=== PATIENT | male | born 1955 | race Caucasian/White ===

== ENCOUNTER 2016-12-24 07:54 | Day surgery (SDC) | payer OTHER ==
[2016-12-24] MEDS ORDERED: Midazolam 1 MG/ML 2 ML SDV ONE (08:05)
[2016-12-24] MEDS ORDERED: fentaNYL 100 MCG/2 ML SDV ONE (08:05)
[2016-12-24] MEDS ORDERED: Propofol 200 MG/20 ML SDV ONE (08:05)
[2016-12-24] MEDS ORDERED: Dextrose 5%-Lactated Ringers 1,000 ML IV SCH ×2 (08:30→10:45)
[2016-12-24 11:38] VITALS: BP 96/59
--- NOTE | 2016-12-28 12:09 | OR ---
DATE OF PROCEDURE: 12/24/2016 PREOPERATIVE DIAGNOSIS: Indications for screening colonoscopy. POSTOPERATIVE DIAGNOSIS: Uncomplicated left colonic diverticulosis. OPERATIVE PROCEDURE: Flexible colonoscopy. ANESTHESIA: IV sedation. INDICATIONS FOR PROCEDURE: This is a 61-year-old male presenting with indications for screening colonoscopy. He has no personal or family history of colon neoplasia. Plan is to proceed with a colonoscopy with biopsies and/or polypectomy as indicated. Potential risks including bleeding and perforation were discussed, and the patient wishes to proceed. DETAILS OF PROCEDURE: The patient was taken to the operating room and placed in a left lateral decubitus position. IV sedation was administered after which the initial digital rectal exam was performed and was unremarkable. Colonoscope was then passed to the level of the rectum where retroflexion revealed uncomplicated hemorrhoidal columns. The scope was then eventually passed to the level of the cecum. Prep was fairly good, though there was some liquid solid stool obscuring small portions of the surfaces, though the vast majority of the surfaces were satisfactory identified. The patient had some uncomplicated left colonic diverticulosis, otherwise there are no areas of inflammation or colitis and no polyps or other signs of neoplasia. The scope was then withdrawn, the above findings reconfirmed, and the procedure concluded. The patient was taken to the recovery room in satisfactory condition. Recommendation would be to repeat the colonoscopy in 10 years unless there are signs or symptoms indicating the need for earlier exam. César Lanza MD /[id number]
== END 2016-12-24 11:49 | disposition home or self-care (01) ==
LOC: JP.SDS 07:54
PROVIDERS: ATTEND Surgery
DX: Z12.11 Encounter for screening for malignant neoplasm of colon (principal); K57.30 Diverticulosis of large intestine without perforation or abscess without bleeding; Z80.0 Family history of malignant neoplasm of digestive organs
CPT/HCPCS: 45378; J2250; J2704; J3010; J7042

== ENCOUNTER 2020-11-22 19:26 | Emergency (ER) | payer OTHER, MEDICARE ==
--- NOTE | 2020-11-22 20:04 | EDM.PDOC ---
ED HPI GENERAL MEDICAL PROBLEM - General Chief Complaint: Fever Stated Complaint: FEVER, FATIGUE Time Seen by Provider: 11/22/20 19:40 Source of Information: Reports: Patient, Family History Limitations: Reports: No Limitations - History of Present Illness INITIAL COMMENTS - FREE TEXT/NARRATIVE: This is a 65 year old male presenting with fever. He is POD#2 from a left total hip arthroplasty. He reports that he noticed a fever of 101 about 2 hours prior to arrival. He took a dose of tylenol prior to coming in and is afebrile here. He denies any other associated symptoms. He denies cough, SOB, chest pain, abdominal pain, nausea, vomiting, diarrhea, or urinary symptoms. Him and his note that there is some mild swelling at the site of his incision, but they have not noticed any redness or drainage. He denies leg swelling or leg pain aside from usual pain at the incision site. He is on a full dose aspirin twice daily for anticoagulation. Treatments FISHER POT: Reports: Acetaminophen - Related Data Allergies Allergy/AdvReac Type Severity Reaction Status Date / Time No Known Allergies Allergy Verified 12/24/16 08:10 Home Meds: Home Meds Aspirin 325 mg PO DAILY 11/22/20 [History] Hydrocodone/Acetaminophen [HYDROcodone-Acetaminophen 5-325 MG] 2 tab PO ASDIRECTED 11/22/20 [History] Ketorolac [Toradol] 10 mg PO Q6H PRN 11/22/20 [History] Omeprazole 20 mg PO DAILY 11/22/20 [History] Past Medical History HEENT History: Reports: Impaired Vision Cardiovascular History: Reports: None Respiratory History: Reports: None Gastrointestinal History: Reports: Colon Polyp Genitourinary History: Reports: None Musculoskeletal History: Reports: Arthritis, Osteoarthritis Neurological History: Reports: None Psychiatric History: Reports: None Endocrine/Metabolic History: Reports: None Hematologic History: Reports: None Immunologic History: Reports: None Oncologic (Cancer) History: Reports: None Dermatologic History: Reports: None - Infectious Disease History Infectious Disease History: Reports: Chicken Pox, Measles, Mumps - Past Surgical History Head Surgeries/Procedures: Reports: None HEENT Surgical History: Reports: None Cardiovascular Surgical History: Reports: None Respiratory Surgical History: Reports: None GI Surgical History: Reports: Colonoscopy, Polypectomy Male Surgical History: Reports: None Endocrine Surgical History: Reports: None Neurological Surgical History: Reports: None Musculoskeletal Surgical History: Reports: Arthroscopic Knee, Arthroscopic Procedure, Hip Replacement, Shoulder Surgery Oncologic Surgical History: Reports: None Dermatological Surgical History: Reports: None Social & Family History - Family History Family Medical History: No Pertinent Family History - Tobacco Use Tobacco Use Status *Q: Light Tobacco User Years of Tobacco use: 6 Packs/Tins Daily: 0.1 - Caffeine Use Caffeine Use: Reports: Coffee - Recreational Drug Use Recreational Drug Use: Yes Recreational Drug Type: Reports: Marijuana/Hashish Recreational Drug Use Frequency: Daily ED ROS GENERAL - Review of Systems Review Of Systems: Comprehensive ROS is negative, except as noted in HPI. ED EXAM, GENERAL - Physical Exam Exam: See Below Exam Limited By: No Limitations General Appearance: Alert, No Apparent Distress Nose: Normal Inspection Throat/Mouth: Normal Inspection, Normal Voice, No Airway Compromise Head: Atraumatic, Normocephalic Neck: Supple, Full Range of Motion Respiratory/Chest: No Respiratory Distress, Lungs Clear, Normal Breath Sounds, No Accessory Muscle Use Cardiovascular: Normal Peripheral Pulses, Regular Rate, Rhythm, No Edema GI/Abdominal: Soft, Non-Tender, No Distention Extremities: Normal Inspection, Non-Tender, No Pedal Edema, Other (no lower extremity edema noted. no calf tenderness) Neurological: Alert, Oriented, Normal Cognition, No Motor/Sensory Deficits Psychiatric: Normal Affect, Normal Mood Skin Exam: Warm, Dry, Other (incision site to left hip is clean, dry, and intact. there is no erythema or drainage noted. ) Course - Vital Signs Last Recorded V/S: Last Vital Signs Temp 97.8 F 11/22/20 19:45 Pulse 80 11/22/20 19:45 Resp 16 11/22/20 19:45 BP 111/49 L 11/22/20 19:45 Pulse Ox 96 11/22/20 19:45 - Orders/Labs/Meds Orders: Active Orders 24 hr Category Date Time Status CXR [Chest 2V] [CR] Stat Exams 11/22/20 19:50 Taken Labs: Laboratory Tests 11/22/20 11/22/20 11/22/20 Range/Units 19:50 20:07 20:07 WBC 9.0 (4.5-11.0) K/uL RBC 4.14 L (4.30-5.90) M/uL Hgb 12.2 (12.0-15.0) g/dL Hct 36.8 L (40.0-54.0) % MCV 89 (80-98) fL MCH 30 (27-31) pg MCHC 33 (32-36) % Plt Count 111 L (150-400) K/uL Neut % (Auto) 69.7 H (36-66) % Lymph % (Auto) 14.0 L (24-44) % [place] % (Auto) 15.0 H (2-6) % Eos % (Auto) 1.1 L (2-4) % Baso % (Auto) 0.2 (0-1) % Sodium 140 (140-148) mmol/L Potassium 4.1 (3.6-5.2) mmol/L Chloride 102 (100-108) mmol/L Carbon Dioxide 27 (21-32) mmol/L Anion Gap 11.2 (5.0-14.0) mmol/L BUN 12 (7-18) mg/dL Creatinine 0.9 (0.8-1.3) mg/dL Est Cr Clr Drug Dosing TNP Estimated GFR (MDRD) > 60 (>60) Glucose 113 H (74-106) mg/dL Calcium 8.9 (8.5-10.1) mg/dL Urine Color Yellow (YELLOW) Urine Appearance Clear (CLEAR) Urine pH 6.0 (5.0-8.0) Ur Specific [place] 1.015 (1.008-1.030) Urine Protein Negative (NEGATIVE) mg/dL Urine Glucose (UA) Negative (NEGATIVE) mg/dL Urine Ketones Negative (NEGATIVE) mg/dL Urine Occult Blood Negative (NEGATIVE) Urine Nitrite Negative (NEGATIVE) Urine Bilirubin Negative (NEGATIVE) Urine Urobilinogen 0.2 (0.2-1.0) EU/dL Ur Leukocyte Esterase Negative (NEGATIVE) Urine RBC Not seen (0-5) Urine WBC Not seen (0-5) Ur Epithelial Cells Rare Amorphous Sediment Rare Urine Bacteria Rare Urine Mucus Not seen Departure - Departure Time of Disposition: 20:36 Disposition: Home, Self-Care 01 Clinical Impression: Fever - Discharge Information Instructions: Fever, Adult Referrals: Anne Roa MD [Primary Care Provider] - Forms: ED Department Discharge Additional Instructions: Monitor your temperature at home. Use tylenol as needed for fever. If you con tinue to experience fevers over the next 24-48 hours or if you develop any new symptoms, please return to the emergency department for re-evaluation. Sepsis Event Note (ED) - Evaluation Sepsis Screening Result: No Definite Risk - Focused Exam Vital Signs: Vital Signs Temp Pulse Resp BP Pulse Ox 11/22/20 19:45 97.8 F 80 16 111/49 L 96 - Problem List Review Problem List Initiated/Reviewed/Updated: Yes - My Orders Last 24 Hours: My Active Orders 11/22/20 19:50 CXR [Chest 2V] [CR] Stat - Assessment/Plan Last 24 Hours: My Active Orders 11/22/20 19:50 CXR [Chest 2V] [CR] Stat Assessment:: This is a 65 year old male presenting on POD#2 from a left total hip arthroplasty with a fever of 101 prior to arrival. He took tylenol and is afebrile on arrival. He has no other associated symptoms and otherwise feels fine. CBC shows no evidence of leukocytosis and his hemoglobin is normal. CXR did not reveal any obvious infiltrate or evidence of pneumonia on preliminary review (final radiology report was pending). Urinalysis did not reveal any evidence of infection. Given his post-op status, I considered DVT/PE, but he has no lower extremity edema or pain and he is taking his aspirin and ambulating regularly so I have low suspicion for DVT/PE at this time. Additionally, he has no tachycardia, hypoxia, or SOB to suggest PE. There is no evidence of surgical site infection at this time and it is quite early in the post-operative course to have a wound infection. I do not see any other cause of fever on evaluation today. It is possible this fever is just secondary to the surgery itself. At this point in time, the patient is stable and is appropriate for discharge home with close outpatient follow up. He was instructed to monitor his temperature at home and to treat any fever with tylenol. He was instructed to return to the ED if he continues to have fever over the next 24-48 hours or if he develops any other new symptoms.
[2020-11-22 20:26] VITALS: BP 111/49; PULSE 80
--- NOTE | 2020-11-25 09:08 | CR ---
CHEST: 2 view CLINICAL HISTORY:Postop fever COMPARISON:CT 09/15/2018 FINDINGS: The heart size, pulmonary vascularity and hilar structures are normal. No infiltrate effusion or pneumothorax is seen. Lungs are mildly hyperaerated IMPRESSION: No acute cardiopulmonary process. Mild emphysematous changes
== END 2020-11-22 20:42 | disposition home or self-care (01) ==
LOC: JP.ED 19:26
DX: R50.9 Fever, unspecified (principal); Z79.82 Long term (current) use of aspirin; Z79.899 Other long term (current) drug therapy; Z72.0 Tobacco use
CPT/HCPCS: 36415; 71046; 71046-26; 80048; 81001; 85025; 99283-25